=== PATIENT | female | born 1995 ===

== ENCOUNTER 2018-12-19 23:31 | Emergency (ER) | payer SELFPAY ==
[2018-12-20] MEDS ORDERED: Sodium Chloride 0.9% 1,000 ML IV STA (01:12)
--- NOTE | 2018-12-20 01:17 | ED PDOC ---
Syncope/Near Syncope/Dizziness Time Seen by Provider: 12/20/18 01:15 Chief Complaint (Nursing): Syncope Chief Complaint (Provider): syncope History Per: Patient History/Exam Limitations: no limitations Onset/Duration Of Symptoms: Hrs (2) Current Symptoms Are (Timing): Gone Now Activity At Onset Of Symptoms: Had Just Stood up Additional Complaint(s): 22 y/o female brought in by EMS for evaluation of syncopal episode prior to arrival. Patient states she was sitting and conversing with family members when she suddenly started to feel lightheaded and had palpitations. Patient states she stood up to try and see if that would help and then she fainted. Significant other at bedside, states patient fainted for a few seconds and that he caught her from falling. Patient states when she woke up she noted tightness in chest in addition to palpitations, which has since resolved. Patient states it is the one year anniversary of her mother's , unknown if related. Denies fever, headache, dizziness, vision changes, extremity numbness/weakness, chest pain, shortness of breath, palpitations, leg pain/swelling, recent travel, OCP use, tobacco use. Past Medical History Reviewed: Historical Data, Nursing Documentation, Vital Signs Vital Signs: Last Vital Signs Temp Pulse 106 H 12/19/18 23:35 Resp 18 12/19/18 23:35 BP 121/75 12/19/18 23:35 Pulse Ox 99 12/19/18 23:35 - Medical History PMH: No Chronic Diseases - Surgical History Surgical History: - Family History Family History: States: No Known Family Hx - Living Arrangements Living Arrangements: With Family - Social History Current smoker - smoking cessation education provided: No Alcohol: None Drugs: Denies - Immunization History Hx Tetanus Toxoid Vaccination: No Hx Influenza Vaccination: No Hx Pneumococcal Vaccination: No - Home Medications Home Medications: Ambulatory Orders Medication Instructions Recorded Multivit/Folic Acid/I 1 tab PO DAILY 07/23/17 [ Plus] - Allergies Allergies/Adverse Reactions: Allergies Allergy/AdvReac Type Severity Reaction Status Date / Time No Known Allergies Allergy Verified 07/23/17 18:50 Review of Systems ROS Statement: Except As Marked, All Systems Reviewed And Found Negative Physical Exam - Reviewed Nursing Documentation Reviewed: Yes Vital Signs Reviewed: Yes - Physical Exam Appears: Positive for: Well, Non-toxic, No Acute Distress Head Exam: Positive for: ATRAUMATIC, NORMAL INSPECTION, NORMOCEPHALIC Skin: Positive for: Normal Color Eye Exam: Positive for: Normal appearance ENT: Positive for: Normal ENT Inspection Cardiovascular/Chest: Positive for: Regular Rate, Rhythm Respiratory: Positive for: Normal Breath Sounds Gastrointestinal/Abdominal: Positive for: Normal Exam Back: Positive for: Normal Inspection Extremity: Positive for: Normal ROM Neurologic/Psych: Positive for: Alert, Oriented (x3) - Laboratory Results Result Diagrams: 12/20/18 01:20 12/20/18 01:20 - ECG ECG: Positive for: Viewed By Me (reviewed by ED attending ) ECG Rhythm: Positive for: Sinus Tachycardia O2 Sat by Pulse Oximetry: 99 - Progress ED Course And Treament: -cbc -cmp -trop -tsh -ekg -cxr -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 -IV NS bolus On re-eval, patient states she is feeling better; no symptoms currently Patient educated on findings, discharged with instructions to follow up with PMD within 2-3 days Return precautions given Disposition - Clinical Impression Clinical Impression: Syncope - Patient ED Disposition Is Patient to be Admitted: No Counseled Patient/Family Regarding: Studies Performed, Diagnosis, Need For Followup - Disposition Referrals: [facility] [Outside] Disposition: Routine/Home Disposition Time: 03:50 Condition: IMPROVED Instructions: Syncope (Fainting) Forms: [employer] (Danish)
[2018-12-20 02:04] LABS: BASO # 0.1 K/uL (0.0-0.2); BASO % 0.5 % (0.0-2.0); EOS # 0.1 K/uL (0.0-0.7); EOS % 0.7 % (0.0-4.0); HEMOGLOBIN 12.1 g/dL (12.0-16.0); LYMPH # 2.5 K/uL (1.0-4.3); LYMPH % 25.7 % (20.0-40.0); MEAN CELL VOLUME 81.3 fl (81.0-99.0); MEAN CORPUSCULAR HEMOGLOBIN 25.9 pg (27.0-31.0); MEAN CORPUSCULAR HGB CONC 31.9 g/dL (33.0-37.0); MEAN PLATELET VOLUME 9.5 fl (7.2-11.7); MONO # 0.8 K/uL (0.0-0.8); MONO % 8.3 % (0.0-10.0); NEUT # 6.2 K/uL (1.8-7.0); NEUT % 64.8 % (50.0-75.0); NRBC % 0.1 % (0.0-0.0); RBC 4.68 Mil/uL (3.80-5.20); RED CELL DISTRIBUTION WIDTH 15.1 % (11.5-14.5); WHITE BLOOD COUNT 9.6 K/uL (4.8-10.8)
[2018-12-20 02:20] LABS: ALB/GLOB RATIO 1.3 (1.0-2.1); ALBUMIN 4.4 g/dL (3.5-5.0); ALT/SGPT 14 U/L (9-52); AST/SGOT 22 U/L (14-36); BLOOD UREA NITROGEN 12 mg/dl (7-17); CALCIUM 9.2 mg/dL (8.4-10.2); GFR NON-AFRICAN AMERICAN > 60
[2018-12-20 03:32] VITALS: BP 108/65; PULSE 83; RESP 17
[2018-12-20 03:40] VITALS: TEMP 98.1
[2018-12-20 03:51] VITALS: O2SAT 99
--- NOTE | 2018-12-20 10:11 | CARD ---
APPROVED REPORT Date of service: 12/19/2018 EKG Measurement Heart [id number] <Conclusion> Sinus tachycardia Otherwise normal ECG
--- NOTE | 2018-12-20 13:00 | RAD ---
Date of service: 12/20/2018 HISTORY: chest pain, syncope COMPARISON: No prior. TECHNIQUE: Chest PA and lateral FINDINGS: LUNGS: No active pulmonary disease. PLEURA: No significant pleural effusion identified. No pneumothorax apparent. CARDIOVASCULAR: No aortic atherosclerotic calcification present. Normal cardiac size. No pulmonary vascular congestion. OSSEOUS STRUCTURES: No significant abnormalities. VISUALIZED UPPER ABDOMEN: Normal. OTHER FINDINGS: None. IMPRESSION: No active disease.
== END 2018-12-20 04:05 | disposition home or self-care (01) ==
LOC: H.ER 23:31
DX: R55 Syncope and collapse (principal)
CPT/HCPCS: 71046; 80053; 81025; 84443; 84484; 85025; 93005; 96360; 99284; J7030